=== PATIENT | female | born 2005 | race African-American/Black ===

== ENCOUNTER 2024-08-01 22:24 | Emergency (ER) | payer MEDICAID ==
[~2024-08-01] VITALS: Ht 165.1 cm; Wt 63.5 kg
[2024-08-01 22:57] VITALS: O2SAT 100
[2024-08-02] MEDS ORDERED: OXYC-100 MT (00:53)
[2024-08-02] MEDS ORDERED: IBUP-2029 MT (00:54)
[2024-08-02 01:25] VITALS: BP 122/74; PULSE 68; RESP 14; TEMP 36.66960; O2SAT 100
== END 2024-08-02 00:35 | disposition home or self-care (01) ==
LOC: ER 22:24
DX: M79.631 Pain in right forearm (principal); M25.531 Pain in right wrist
CPT/HCPCS: 29125; 73090; 73110; 99284